=== PATIENT | male | born 1985 | race Caucasian/White ===

== ENCOUNTER → 2020-03-08 | Outpatient (CLI) | payer OTHER | LOC: ZCOL.LAB 20:21 | DX: Z20.828 Contact with and (suspected) exposure to other viral communicable diseases (principal) ==

== ENCOUNTER 2021-09-13 17:24 | Emergency (ER) | payer OTHER ==
[~2021-09-13] VITALS: Ht 190.5 cm; Wt 88.6 kg
[2021-09-13 17:58] VITALS: TEMP 98.1
[2021-09-13] MEDS ORDERED: XANAX 0.5MG0.5 MG PO (18:49)
[2021-09-13 18:53] LABS: BASO # 0.1 K/mm3 (0.0-0.2); BASO % 0.5 % (0.0-2.0); EOS # 0.1 K/mm3 (0.0-0.7); EOS % 0.8 % (0.0-4.0); GRAN # 8.4 K/mm3 (1.4-6.5); GRAN % 74.7 % (42.2-75.2); HEMATOCRIT 44.4 % (42.0-52.0); HEMOGLOBIN 15.8 g/dl (13.5-18.0); LYMPH # 1.9 K/mm3 (1.2-3.4); MEAN CELL VOLUME 83 fl (80.0-100.0); MEAN CORPUSCULAR HEMOGLOBIN 29 pg (27-31); MEAN CORPUSCULAR HGB CONC 36 g/dl (33.0-37.0); MEAN PLATELET VOLUME 10.1 fl (7.4-10.4); MONO # 0.8 K/mm3 (0.1-0.6); MONO % 6.7 % (1.7-9.3); PLATELET COUNT 242 K/mm3 (130-400); RED BLOOD COUNT 5.38 M/mm3 (4.20-5.60); REDCELL DISTRIBUTION WIDTH-CV 11.9 % (11.5-14.5)
[2021-09-13 19:07] LABS: ALANINE AMINOTRANSFERASE 32 U/L (0-55); ALBUMIN 4.5 gm/dL (3.5-5.0); ALKALINE PHOSPHATASE 75 U/L (40-150); ANION GAP 10 mmol/L (7-16); AST,SGOT 18 U/L (5-34); BILIRUBIN,TOTAL 2.2 mg/dL (0.2-1.2); BLOOD UREA NITROGEN 15 mg/dL (9-21); CALCIUM 9.2 mg/dL (8.4-10.2); CARBON DIOXIDE 24 mmol/L (22-29); CHLORIDE 106 mmol/L (98-107); CREATINE KINASE 103 U/L (30-200); GLUCOSE 92 mg/dL (70-99); POTASSIUM 3.7 mmol/L (3.5-4.5); SODIUM 140 mmol/L (136-145); TOTAL PROTEIN 7.8 gm/dL (6.2-8.1)
[2021-09-13 19:17] LABS: TROPONIN-I < 0.010 ng/mL (0.00-0.033)
[2021-09-13 20:54] VITALS: BP 134/81; PULSE 90
== END 2021-09-13 20:55 | disposition home or self-care (01) ==
LOC: COL.ER 17:24
PROVIDERS: Emergency Medicine
DX: F41.0 Panic disorder [episodic paroxysmal anxiety] (principal); T42.4X5A Adverse effect of benzodiazepines, initial encounter
CPT/HCPCS: J2060; J7030